=== PATIENT | female | born 1970 | race Caucasian/White ===

== ENCOUNTER 2017-11-14 20:37 | Emergency (ER) | payer OTHER ==
[~2017-11-14] VITALS: Ht 160 cm; Wt 52.2 kg
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
[2017-11-14] MEDS ORDERED: oxyCODONE/APAP 10/325 1 TAB TABLET PO ONE (21:00)
[2017-11-14] MEDS ORDERED: ONDANSETRON ODT 4 MG TAB.RAPDIS PO ONE (21:00)
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
[2017-11-14 23:35] VITALS: BP 122/68
--- NOTE | 2017-11-15 07:27 | RAD ---
2 views of the Chest 11/14/2017 10:48 PM Indication: chest pain Comparison: None Findings: There is no focal consolidation or infiltrate identified. There is no effusion or pneumothorax. The cardiomediastinal silhouette and pulmonary vasculature are within normal limits. No osseous abnormality is identified. Impression: No evidence of acute cardiopulmonary process.
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
== END 2017-11-14 23:37 | disposition home or self-care (01) ==
LOC: ER 20:37
DX: S16.1XXA Strain of muscle, fascia and tendon at neck level, initial encounter (principal); S46.912A Strain of unspecified muscle, fascia and tendon at shoulder and upper arm level, left arm, initial encounter; R51 Headache; Z88.0 Allergy status to penicillin; V89.2XXA Person injured in unspecified motor-vehicle accident, traffic, initial encounter; Y93.89 Activity, other specified; Y99.8 Other external cause status; Y92.488 Other paved roadways as the place of occurrence of the external cause
CPT/HCPCS: 70450; 71046; 72125; 73030; 99284; Q0162

== ENCOUNTER 2020-07-03 13:39 | Emergency (ER) | payer OTHER ==
[~2020-07-03] VITALS: Ht 160 cm; Wt 51.0 kg
[2020-07-03 13:54] VITALS: BP 137/97
[2020-07-03] MEDS ORDERED: LIDOCAINE 1%/EPI 1:100,000 20 ML VIAL. IJ ONE (14:00)
[2020-07-03] MEDS ORDERED: HYDROcodone/APAP 5/325MG 1 TAB TABLET PO ONE (14:00)
--- NOTE | 2020-07-03 14:35 | RAD ---
3 view study of the left thumb Clinical indications: Laceration injury. Pain. FINDINGS: No acute fracture or dislocation or lytic process is seen. Laceration injury of the anterior distal left thumb is seen. No radiopaque foreign body is evident. There is mild degenerative spurring of the interphalangeal joint. Note-the study was initially labeled as right side but I checked with the x-ray technologist and she stated that this is definitely the left thumb. IMPRESSION: No acute osseous abnormality. No radiopaque foreign body. Electronically signed by: Daniel Greene MD (07/03/2020 2:32 PM) [id number]
[2020-07-03] MEDS ORDERED: CEPH-264 PO (14:53)
--- NOTE | 2020-07-03 14:53 | PHYS DOC ---
Past History Past Medical History: Anxiety Past Surgical History: , Other Alcohol Use: Occasionally Drug Use: None General Adult EDM: Chief Complaint: LACERATION/AVULSION HPI: HPI: History obtained from patient. Patient is a 50-year-old right-handed female presents with complaint of laceration to the pad of her left thumb. States she was using a management sme with sharp blades and did not realize it was still turned on. She states that the management sme device suddenly turned on and cut the pad of her left thumb. Denies numbness or tingling. Does no active bleeding. Does state that she is up-to-date on her tetanus vaccine. States that the management sme did have food material in it when it cut her. No other complaints. Review of Systems: Review of Systems: Constitutional: Denies fever or chills Eyes: Denies change in visual acuity HENT: Denies nasal congestion or sore throat Respiratory: Denies cough or shortness of breath Cardiovascular: Denies chest pain or edema GI: Denies abdominal pain, nausea, vomiting, bloody stools or diarrhea : Denies dysuria Musculoskeletal: Denies back pain or joint pain Integument: Positive for laceration Neurologic: Denies headache, focal weakness or sensory changes Endocrine: Denies polyuria or polydipsia Lymphatic: Denies swollen glands Psychiatric: Denies depression or anxiety Current Medications: Current Meds: Current Medications Medications (Trade) Dose Ordered Sig/Inder Start Time Stop Time Status Last Admin Dose Admin Acetaminophen/ Hydrocodone Bitart (Lortab 5/325) 1 tab 1X ONCE 07/03/20 14:00 07/03/20 14:03 DC 07/03/20 14:00 1 TAB Lidocaine/ Epinephrine (Xylocaine 1%-Epi 1:100,000) 20 ml 1X ONCE 07/03/20 14:00 07/03/20 14:01 DC 07/03/20 13:54 20 ML Allergies: Allergies: Allergies Coded Allergies Type Severity Reaction Last Updated Verified Penicillins Allergy Unknown 11/14/17 Yes Physical Exam: PE: Constitutional: Well developed, well nourished, no acute distress, non-toxic appearance. [] HENT: Normocephalic, atraumatic, bilateral external ears normal, oropharynx moist, no oral exudates, nose normal. [] Eyes: PERRLA, EOMI, conjunctiva normal, no discharge. [] Neck: Normal range of motion, no tenderness, supple, no stridor. [] Cardiovascular:Heart rate regular rhythm, no murmur [] Lungs & Thorax: Bilateral breath sounds clear to auscultation [] Abdomensoft, no tenderness, no masses, no pulsatile masses. [] Skin: Warm, dry, no erythema, no rash. [] Back: No tenderness, no CVA tenderness. [] Extremities: 1.5 cm r laceration noted to the pad of the distal left thumb. Ragged edges. No foreign bodies visualized on inspection. No nailbed involvement. Bleeding well controlled with compression. Neurologic: Alert and oriented X 3, normal motor function, normal sensory function, no focal deficits noted. [] Psychologic: Affect normal, judgement normal, mood normal. [] Current Patient Data: Vital Signs: Vital Signs Date Time Temp Pulse Resp B/P (MAP) Pulse Ox O2 Delivery O2 Flow Rate FiO2 07/03/20 14:00 16 98 Room Air 07/03/20 13:54 97.8 70 137/97 (110) EKG: EKG: [] Radiology/Procedures: Radiology/Procedures: [place] [address] IMAGING REPORT Signed PATIENT: SHAWN MILLER ACCOUNT: [id number] : 1970 LOCATION: ER AGE: 50 SEX: F EXAM STATUS: REG ER ORD. PHYSICIAN: TOMMIE PERRY DO REASON: laceration over pad of dsital L thumb PROCEDURE: FINGER(S) LEFT 3 view study of the left thumb Clinical indications: Laceration injury. Pain. FINDINGS: No acute fracture or dislocation or lytic process is seen. Laceration injury of the anterior distal left thumb is seen. No radiopaque foreign body is evident. There is mild degenerative spurring of the interphalangeal joint. Note-the study was initially labeled as right side but I checked with the x-ray technologist and she stated that this is definitely the left thumb. IMPRESSION: No acute osseous abnormality. No radiopaque foreign body. Electronically signed by: Armaan Greene MD (07/03/2020 2:32 PM) [id number] DICTATED AND SIGNED BY: ARMAAN GREENE MD DATE: 07/03/20 [id number] CC: PCP,NO; TOMMIE PERRY DO ~MTH0 0 Laceration Repair: Obtained verbal consent from patient. Time out done prior to procedure. No sedation was required. 1 Laceration(s) to distal pad of the left thumb. Sterile drape fashioned, following sterile procedure. Procedure: Laceration Repair Length: 1.5 cm Description: Ragged edges Mechanism: Knife Shape: Avulsion and ragged Complex: Normal The wound area was prepped and draped in a sterile fashion. The wound area was anesthetized with 1.0% lidocaine with epinephrine The wound was explored with the following results no tenderness involvement. No nailbed involvement. No foreign bodies identified.. The wound was repaired with 4-0 nylon; 10 sutures were used. The wound was dressed cleanly. The patient tolerated the procedure well. [] Heart Score: Risk Factors: Risk Factors: DM, Current or recent (<one month) smoker, HTN, HLP, family history of CAD, obesity. Risk Scores: Score 0 - 3: 2.5% MACE over next 6 weeks - Discharge Home Score 4 - 6: 20.3% MACE over next 6 weeks - Admit for Clinical Observation Score 7 - 10: 72.7% MACE over next 6 weeks - Early Invasive Strategies Course & Med Decision Making: Course & Med Decision Making Pertinent Labs and Imaging studies reviewed. (See chart for details) [] Patient is a pleasant 50-year-old female who presents with chief complaint of laceration to the dorsal aspect of the distal left thumb. X-ray feels no radiopaque foreign body or fracture. I on inspection no foreign bodies visualized. No nailbed involvement. Wound does appear to have multiple ragged edges with very thin skin left. 10, 4-0 sutures were used to repair the laceration. Mild bloody oozing left after repair. Remainder of the skin tissue not amenable to closure. Bleeding controlled with direct pressure. Patient will be prescribed oral antibiotic given there were food particles involved. Copious irrigation was performed. Patient is current with her tetanus she states. She was instructed have sutures removed in 7 to 10 days. Return precautions discussed and understood. Stable for discharge home. Stefany Disclaimer: Stefany Disclaimer: This electronic medical record was generated, in whole or in part, using a voice recognition dictation system. Departure Departure: Impression: Primary Impression: Thumb laceration Qualified Codes: S61.012A - Laceration without foreign body of left thumb without damage to nail, initial encounter Disposition: 01 DC HOME SELF CARE/HOMELESS Condition: STABLE Referrals: PCP,NO (PCP) SALVADOR LONGORIA MD Patient Instructions: Fingertip Laceration, Laceration Care, Adult Additional Instructions: Please have sutures removed in 7 to 10 days. Please return emergency department if you notice purulent drainage, increased redness to the thumb, fevers, vomiting, persistent moderate to heavy bleeding. Please avoid standing water or dirty water exposure to the thumb. Scripts Cephalexin (KEFLEX) 500 Mg Capsule 500 MG PO QID for laceration for 7 Days, #28 TAB Prov: TOMMIE PERRY DO 07/03/20 TOMMIE PERRY DO Jul 03, 2020 14:53
[2020-07-03] MEDS ORDERED: BACITRACIN ZINC TOPICAL OINT PACKET. TP ONE (15:00)
== END 2020-07-03 15:14 | disposition home or self-care (01) ==
LOC: ER 13:39
DX: S61.012A Laceration without foreign body of left thumb without damage to nail, initial encounter (principal); F41.9 Anxiety disorder, unspecified; Z98.890 Other specified postprocedural states; Z88.0 Allergy status to penicillin; W26.8XXA Contact with other sharp object(s), not elsewhere classified, initial encounter; Y93.89 Activity, other specified; Y92.89 Other specified places as the place of occurrence of the external cause; Y99.8 Other external cause status
CPT/HCPCS: 12001; 73140; 99283